=== PATIENT | male | born 1995 | race Caucasian/White ===

== ENCOUNTER 2020-10-06 13:17 | Emergency (ER) | payer OTHER, SELFPAY ==
--- NOTE | 2020-10-06 13:38 | DI.RAD.S_ITS ---
PROCEDURE: XR FOOT LT MIN 3V INDICATIONS: pain at heel withi recent injury TECHNIQUE: 3 views of the foot were acquired. COMPARISON: None. FINDINGS: Bones: No fractures or dislocations. No suspicious bony lesions. Soft tissues: No tibiotalar joint effusion. Achilles tendon appears normal. Thickened plantar fascia at its plantar calcaneal insertion is seen. IMPRESSION: No left foot fracture or dislocation. Plantar fascia thickening near its plantar calcaneal insertion concerning for plantar fasciitis. Dictated by: William Dueñas M.D. on 10/06/2020 at 13:57 Approved by: William Dueñas M.D. on 10/06/2020 at 13:58
[2020-10-06 13:41] VITALS: BP 166/103; PULSE 107; RESP 22; TEMP 36.8; O2SAT 98; BMI 35.4
--- NOTE | 2020-10-06 14:17 | ED_ITS ---
HPI - Extremity Injury (Lower) General Chief Complaint: Extremity Injury, Lower Stated Complaint: Poss fractured LT foot Time Seen by Provider: 10/06/20 13:20 Source: patient Mode of arrival: Family Vehicle Limitations: no limitations History of Present Illness HPI Narrative: 25M non smoker with noncontributory medical history presents with his and young child and a chief complaint of ongoing pain since stabbing the toe of his left foot about a week ago. He had been seen at an outside facility and had an x-ray which was read as negative but since then he has developed increasing pain and swelling on the bottom of his foot. The pain is worse with ambulation and improves with rest. He denies any numbness, tingling or weakness. He denies any other injury and is otherwise well and free of complaint. Related Data Previous Rx's Medication Instructions Recorded ketorolac 10 mg PO Q6H PRN #20 tab 10/06/20 Allergies Allergy/AdvReac Type Severity Reaction Status Date / Time No Known Drug Allergies Allergy Verified 10/06/20 13:46 Review of Systems Review of Systems ROS Unobtainable: All systems reviewed & are unremarkable except as noted in HPI and below Constitutional Constitutional: Denies body ache(s) and Denies headache(s) ENT Ears, Nose, Mouth, and Throat: Denies headache(s) Cardiovascular Cardiovascular: Denies chest pain and Denies dyspnea Respiratory Respiratory: Denies dyspnea Gastrointestinal Gastrointestinal: Denies abdominal pain, Denies nausea and Denies vomiting Musculoskeletal Musculoskeletal: Reports abnormal gait and Denies tingling Integumentary/Breasts Skin/Breast: Denies unusual bruising Neurologic Neurologic: Reports abnormal gait, Denies headache(s), Denies sensory deficit and Denies tingling Patient History Social History Smoking Status: Never smoker Smoking Status: Never smoker tobacco type: smokeless tobacco alcohol intake frequency: 0-2 drinks per day Substance Use Type: does not use Exam Narrative Exam Narrative: GEN: AOx3 and in mild distress EYES: Pupils are equal, round, and reactive to light and accommodation. Extraoccular muscles are intact bilaterally. There is no subconjunctival hemorrhage or exudate. CHEST: Lungs are clear to auscultation bilaterally and free of wheezes, rales, or rhonchi. Heart rate is regular rhythm, there are no murmurs, clicks, rubs, or gallops. There is no chest wall tenderness. ABD: Abdomen is soft and nontender. There is no guarding or rebound. Bowel sounds are normal in all 4 quadrants. There is no mass or organomegaly. EXT: Subtle hint of healing bruising on 3rd and 4th toe of left foot. No pain or swelling over dorsal aspect of foot. Pain and swelling on plantar surface of foot anterior to the calcaneus Full painless ROM of all extremities with no loss of sensation or strength. SKIN: Warm, pink, and dry. No erythema or rash Initial Vital Signs Initial Vital Signs: Vital Signs Temperature 98.3 F 10/06/20 13:41 Pulse Rate 107 H 10/06/20 13:41 Respiratory Rate 22 10/06/20 13:41 Blood Pressure 166/103 H 10/06/20 13:41 Pulse Oximetry 98 10/06/20 13:41 Course Orders Ordered: ED Orders 10/06/20 13:38 XR foot LT min 3V Stat Vital Signs Vital signs: Vital Signs - 8 hr 10/06/20 13:41 10/06/20 14:45 Temperature 98.3 F Pulse Rate 107 H 78 Respiratory Rate 22 18 Blood Pressure 166/103 H 150/80 H Pulse Oximetry 98 99 MDM - Extremity Injury (Lower) Imaging Data Extremity x-ray #1: Radiologist's Impression: [address] [id number] ReportSigned Patient: Arnulfo Benton JMR#: [id number]: 1995Acct:[id number]/Sex: 25 / MDate of Service: 10/06/20Loc: EDAccession Number: [id number] Procedure: XR foot LT min 3V Ordering Provider: Jagdish Maynard D.O. PROCEDURE: XR FOOT LT MIN 3V INDICATIONS: pain at heel withi recent injury TECHNIQUE: 3 views of the foot were acquired. COMPARISON: None. FINDINGS: Bones: No fractures or dislocations. No suspicious bony lesions. Soft tissues: No tibiotalar joint effusion. Achilles tendon appears normal. Thickened plantar fascia at its plantar calcaneal insertion is seen. IMPRESSION: No left foot fracture or dislocation. Plantar fascia thickening near its plantar calcaneal insertion concerning for plantar fasciitis. Dictated by: William Dueñas M.D. on 10/06/2020 at 13:57 Approved by: William Dueñas M.D. on 10/06/2020 at 13:58 Discharge Plan Departure Patient Disposition: Home Clinical Impression: Contusion of toe, Plantar fasciitis Instructions: DI for Plantar Fasciitis Activity Restrictions/Additional Instructions: *You have been diagnosed with [toe contusion, findings consistent with plantar fasciitis] *What to do: *Take medications as directed: [facility] *Follow up with your primary care provider in 2-3 days, call for an appointment. Let them know you were seen in the Emergency Department and that we ask that you be seen in follow up *Return to ER if you should have any new, worsening or concerning symptoms Prescriptions: New ketorolac 10 mg tablet 10 mg PO Q6H PRN (Reason: pain) Qty: 20 RF: 0 Referrals: Maverick Enamorado MD [Physician] -
[2020-10-06 14:45] VITALS: BP 150/80; PULSE 78; RESP 18; O2SAT 99
--- NOTE | 2020-10-06 15:34 | PC.NURSE ---
ortho shoe taken back from pt.. dr. emerson cancelled the order
== END 2020-10-06 14:47 | disposition home or self-care (01) ==
PROVIDERS: Emergency Provider Emergency Medicine
DX: S90.122A Contusion of left lesser toe(s) without damage to nail, initial encounter (principal); M72.2 Plantar fascial fibromatosis
CPT/HCPCS: 73630; 99283

== ENCOUNTER 2022-08-26 09:11 | Emergency (ER) | payer OTHER, SELFPAY ==
[2022-08-26 09:21] VITALS: BP 138/63; PULSE 103; RESP 16; TEMP 36.7; O2SAT 96; BMI 35.4
--- NOTE | 2022-08-26 09:39 | ED_ITS ---
HPI - General Adult General Chief complaint: Upper Respiratory Symptoms Stated complaint: COVID LIKE SYMPTOMS 2 DAYS Time Seen by Provider: 08/26/22 09:34 Source: patient Mode of arrival: Ambulatory Limitations: no limitations History of Present Illness HPI narrative: Patient is a 27-year-old male. Is vaccinated against COVID who is here for evaluation of 2 days of congestion, sore throat, cough. Has tried some [id number] medications at home with minimal if any improvement. No fevers. No underlying lung pathology. Related Data Previous Rx's Medication Instructions Recorded ketorolac 10 mg tablet 10 mg PO Q6H PRN pain #20 tabs 10/06/20 Allergies Allergy/AdvReac Type Severity Reaction Status Date / Time No Known Drug Allergies Allergy Verified 10/06/20 13:46 Review of Systems Constitutional Constitutional: Reports system reviewed and no additional complaints, except as documented ENT Ears, Nose, Mouth, and Throat: Reports system reviewed and no additional comp laints, except as documented Cardiovascular Cardiovascular: Reports system reviewed and no additional complaints, except as documented Respiratory Respiratory: Reports system reviewed and no additional complaints, except as documented Gastrointestinal Gastrointestinal: Reports system reviewed and no additional complaints, except as documented Integumentary/Breasts Skin/Breast: Reports system reviewed and no additional complaints, except as documented Allergic/Immunologic Allergic/Immunologic: Reports system reviewed and no additional complaints, exc ept as documented Patient History Medical History Hypertension Social History Smoking Status: Never smoker Smoking Status: Never smoker tobacco type: smokeless tobacco alcohol intake frequency: 0-2 drinks per day Substance Use Type: does not use Exam Initial Vital Signs Initial Vital Signs: Vital Signs Temperature 98.1 F 08/26/22 09:21 Pulse Rate 103 H 08/26/22 09:21 Respiratory Rate 16 08/26/22 09:21 Blood Pressure 138/63 08/26/22 09:21 Pulse Oximetry 96 08/26/22 09:21 Oxygen Delivery Method 08/26/22 09:21 Const General: cooperative HENMT Head: normal to inspection and normocephalic Teeth and gingiva: dentition normal Throat: posterior oropharynx normal Resp Effort & Inspection: normal respiratory effort Auscultation: clear to auscultation bilaterally Skin General: no rashes or lesions noted Neuro General: patient alert, patient awake and moves all extremities Extrem General: normal to inspection Course Orders Ordered: ED Orders 08/26/22 09:40 Covid-19 + FLU A/B + RSV - PCR Stat Vital Signs Vital signs: Vital Signs - 8 hr 08/26/22 09:21 Temperature 98.1 F Pulse Rate 103 H Respiratory Rate 16 Blood Pressure 138/63 Pulse Oximetry 96 Oxygen Delivery Method Room Air Medical Decision Making Lab Data Labs: Lab Results 08/26/22 Range/Units 09:40 SARS-CoV-2 (PCR) Negative (Negative) Influenza A (RT-PCR) Flu a negative (NEGATIVE) Influenza B (RT-PCR) Flu b negative (NEGATIVE) RSV (PCR) Negative (Negative) MDM Narrative Medical decision making narrative: Nontoxic appearing lungs are clear. Not hypoxic. Viral testing negative however it was only for COVID, flu a/B, RSV. Still no indication for antibiotics. Discussed [id number]-[id number] cough and cold preparations and Tylenol and ibuprofen. He was given return precautions. He expressed understanding and agreement. Discharge Plan Departure Patient Disposition: Home Clinical Impression: Upper respiratory infection Instructions: DI for Viral Upper Respiratory Infection -- Adult Activity Restrictions/Additional Instructions: Recommend that you continue with Tylenol/ibuprofen for any fevers. You can try [id number]-wab-[id number] cough and cold preparations to help with your symptoms. Be sure your increasing your fluid intake. Contact her primary provider for follow-up. Return to the emergency department for any new or worsening symptoms. Prescriptions: No Action ketorolac 10 mg tablet 10 mg PO Q6H PRN (Reason: pain) Qty: 20 0RF
[2022-08-26 10:54] LABS: COVID-19 CEPHEID 4-PLEX PCR Negative (Negative); Influenza A - CEPHEID Flu A NEGATIVE (NEGATIVE); Influenza B - CEPHEID Flu B NEGATIVE (NEGATIVE); Respiratory Syncytial Virus Negative (Negative)
[2022-08-26 11:12] VITALS: BP 136/94; PULSE 84; RESP 18; O2SAT 95
== END 2022-08-26 11:12 | disposition home or self-care (01) ==
PROVIDERS: Emergency Provider Emergency Medicine
DX: J06.9 Acute upper respiratory infection, unspecified (principal); Z20.822 Contact with and (suspected) exposure to COVID-19
CPT/HCPCS: 0241U; 99281; 99282